=== PATIENT | female | born 1985 | race Caucasian/White ===

== ENCOUNTER 2025-08-31 19:54 | Inpatient (IN) ==
[2025-08-31] MEDS ORDERED: OXYTOCIN 30 UNITS/NSS 30 UNITS/500 ML BAG IV PRN ×2 (19:56→21:07)
[2025-08-31] MEDS ORDERED: ACETAMINOPHEN 500 MG TAB PO PRN (19:56)
[2025-08-31] MEDS ORDERED: LACTATED RINGER'S 1,000 ML IV PRN (19:56)
[2025-08-31] MEDS ORDERED: CALCIUM CARBONATE 500 MG CHEWABLE TAB PO PRN (19:56)
[2025-08-31 20:29] LABS: Hematocrit (blood only) 36.5 % (37.0-47.0); Hemoglobin 12.3 g/dl (12.0-16.0); Mean Corpuscular Hemoglobin 30.8 pg (25.0-34.0); Mean Corpuscular Volume 91.3 fL (80.0-100.0); Platelet Count 211 K/uL (130-400); RDW Standard Deviation 41.8 fL (36.4-46.3); Red Blood Count 4.00 M/uL (4.20-5.40); White Blood Count 10.05 K/ul (4.8-10.8)
[2025-08-31] MEDS ORDERED: BENZOCAINE 20% SPRY 85 APPLN/85 GM CAN EXT PRN (21:07)
[2025-08-31] MEDS ORDERED: HYDROCORTISONE ACETATE 25 MG SUPP PR PRN (21:07)
--- NOTE | 2025-08-31 21:08 | Delivery Summary ---
Vaginal Delivery Summary Date of Service August 31, 2025 Vaginal Delivery Summary and 2nd Degree LAC Patient presented in precipitous labor at 8 cm dilated 100% effaced 0 station and progressed quickly to to complete complete +2 station. Pushed over intact perineum without anesthesia and delivered a viable with weight and Apgars pending. Had the delivered without difficulty quickly followed by shoulders and body. was noted to be vigorous soon after delivery and a 1 minute delayed cord clamping was initiated. Cord was then double clamped and cut remained on maternal abdomen. Cord blood obtained and attention turned to delivery of the placenta which delivered intact with three-vessel cord gentle cord traction. Inspection of perineum vagina and cervix there is noted to be a small second-degree perineal laceration which was repaired with 3-0 Vicryl in traditional crown stitch. 8 cc of lidocaine was dosed to the perineal laceration prior to closure. Needle sponge and instrument counts were correct at the completion of the case. Both mother and stable in the immediate postdelivery timeframe. No complications noted and blood loss per QBL. [facility] Vaginal Delivery Charge Delivery Type Details: and 2nd Degree LAC
[2025-08-31] MEDS: OXYTOCIN 10 UNITS/ML VIAL ONE (21:54)
[2025-08-31] MEDS: OXYTOCIN 10 UNITS/ML VIAL IM ONE (21:54)
[2025-08-31] MEDS: DIPHTHER/TETAN/PERTUS Vaccine (Tdap, Adol/Adult) 0.5mL IM ONE (21:55)
[2025-08-31] MEDS: LIDOCAINE 1% LOCAL 20 ML VIAL INFIL PRN (21:58)
[2025-08-31] MEDS: IBUPROFEN 600 MG TAB PO PRN (22:13)
[2025-09-01 00:46] VITALS: RESP 18
[2025-09-01] MEDS: PRENATAL VITAMIN 1 TAB PO SCH (07:25)
[2025-09-01] MEDS: DOCUSATE SODIUM 100 MG CAP PO SCH (07:25)
[2025-09-01] MEDS: FERROUS SULFATE 325 MG TAB PO SCH (07:25)
--- NOTE | 2025-09-01 08:08 | Obstetrical Progress Note ---
Date of Service September 01, 2025 Assessment & Plan (1) with history of ectopic , antepartum: (2) Elderly multigravida: (3) History of delivery, currently : Plan Assessment and plan 40 yo post- day 1 s/p [ with 2nd degree laceration Fells well today. Vital signs stable Continue post- care Encourage ambulation and Pain controlled with ibuprofen Hgb stable Discharge home tomorrow, follow up with Dr. Vogel in 6 weeks. Admission and Anticipated Discharge Date Admission Date: August 31, 2025 Supervising Physician Co-Signing Physician Notes Patient seen with resident and agree with the above findings and plan. Routine care with plan for discharge likely tomorrow. Doing well and could be discharged at 24 hours if preferred Subjective Post- HPI 40n yo post- day 1 s/p with 2nd degree laceration. Ambulation: ambulating normally Voiding: no voiding problems Passing Gas:: Yes Diet Tolerance:: regular diet Lochia:: Small Feeding Type:: bottle and breast feeding Current Pain Level:Slight pain. Resting comfortably this AM in NAD. Denies MUIR, CP, SOB, N/V/D, LE pain/swelling. Physical Exam Physical Exam: Post- PE General: patient resting comfortably, NAD, non-toxic in appearance, AA&O x 4, answers questions appropriately. Skin: warm, dry, intact HEENT: NC/AT, anicteric sclera, conjunctiva without injection, moist mucus membranes. Heart: +S1/S2, regular, no m/r/g Lungs: equal air entry bilaterally, no rales/rhonchi/wheezes Abd: +BS, soft, NT/ND, uterine fundus firm at umbilicus. Ext: warm, no clubbing/cyanosis or edema, Delmis's neg. Neuro: nonfocal, patient AA&O x 4, speech intact, no facial droop, moving all e xtremities on command. Results & Data Vital Signs (Past 12 Hours) Vital Signs Temp Pulse Pulse Resp BP BP Pulse Ox 09/01/25 07:23 36.4 C L 64 18 117/80 100 09/01/25 03:25 36.7 C 68 18 101/63 98 08/31/25 23:20 36.6 C 66 18 106/66 95 08/31/25 22:55 36.6 C 16 08/31/25 22:27 60 109/66 08/31/25 22:12 60 110/73 08/31/25 21:57 58 L 119/76 08/31/25 21:42 68 113/63 08/31/25 21:27 69 114/58 L 08/31/25 21:17 62 110/53 L 08/31/25 20:57 68 122/68 08/31/25 20:55 36.6 C 16 08/31/25 20:12 63 119/78 O2 Del Method 09/01/25 07:23 Room Air 09/01/25 03:25 Room Air 08/31/25 23:20 Room Air 08/31/25 22:55 08/31/25 22:27 08/31/25 22:12 08/31/25 21:57 08/31/25 21:42 08/31/25 21:27 08/31/25 21:17 08/31/25 20:57 08/31/25 20:55 08/31/25 20:12 Resident Activity Tracking Resident Involvement: Resident Care Provided Care Provided: Adult Hospital Medicine
[2025-09-01] MEDS: ACETAMINOPHEN 325 MG TAB PO PRN (08:17)
[2025-09-01 15:29] VITALS: TEMP 97.5
[2025-09-01 19:40] VITALS: BP 112/73; PULSE 67; O2SAT 96
== END 2025-09-01 21:35 | disposition home or self-care (01) | DRG 807 ==
LOC: OPB 19:54 → 4S1 19:56 → 4E2 23:17